=== PATIENT | female | born 1930 | race Caucasian/White ===

== ENCOUNTER 2019-08-25 17:58 | Emergency (ER) | payer OTHER ==
[~2019-08-25] VITALS: Ht 167.6 cm; Wt 65.8 kg
--- NOTE | 2019-08-25 17:58 | NUR ---
PTBIBA ALS TO ER BED 11
[2019-08-25 18:00] VITALS: BP 112/48
--- NOTE | 2019-08-25 18:18 | NUR ---
BIBA ONE EPISODE OF WITNESSED SYNCOPE AT [facility] S/P VAGAL MANUEVER. NO DEFORMITY NOTED. SKIN IN-TACT. PERRLA 3MM. PATIENT IS ORIENTED TO SELF, BUT CANNOT RECALL MONTH/PRESIDENT/ LOCATION. NO HEAD TRAUMA SUSPECTED. BILAT ABRASIVE GRINDER STRENGTH 5/5. ROM. LUNG SOUNDS CLEAR BILAT. RESPIRATIONS EVEN/UNLABORED. PMH: HTN, ANXIETY ALLERGIES: SULFA
[2019-08-25] MEDS ORDERED: NACL 0.9% 500 ML IV SCH (18:21)
--- NOTE | 2019-08-25 18:45 | NUR ---
PT TAKEN TO CT
[2019-08-25 18:53] LABS: BASOPHILS % (AUTO) 0.5 % (0.0-2.0); EOSINOPHILS # (AUTO) 0.1 K/uL (0-0.4); HEMATOCRIT 40.1 % (36-48); HEMOGLOBIN 13.1 g/dL (12.0-16.0); LYMPHOCYTES # (AUTO) 1.9 K/uL (2.5-16.5); LYMPHOCYTES % (AUTO) 25.1 % (20.5-51.1); MEAN CORPUSCULAR HEMOGLOBIN 30 pg (27-31); MEAN CORPUSCULAR HGB CONC 33 g/dL (33-37); MONOCYTES # (AUTO) 0.6 K/uL (0.8-1.0); MONOCYTES % (AUTO) 7.5 % (1.7-9.3); NEUTROPHILS # (AUTO) 4.9 K/uL (1.8-7.7); NEUTROPHILS % (AUTO) 65.9 % (42.2-75.2); PLATELET COUNT (AUTO) 253 K/uL (140-450); RED BLOOD CELL COUNT(AUTO) 4.31 MIL/uL (4.20-5.40); RED CELL DISTRIBUTION WIDTH 13.8 % (11.6-13.7); WHITE BLOOD COUNT (AUTO) 7.5 K/uL (4.8-10.8)
[2019-08-25 19:14] LABS: ANION GAP 10.3 (8-16); CARBON DIOXIDE 26.5 mmol/L (21-32); CHLORIDE 103 mmol/L (98-107); CREATININE 1.2 mg/dL (0.6-1.3); GLUCOSE 124 mg/dL (74-106); POTASSIUM 3.8 mmol/L (3.5-5.1); SODIUM SERUM 136 mmol/L (136-145); UREA NITROGEN, BLOOD 25 mg/dL (7-18)
[2019-08-25 19:20] LABS: ALBUMIN 3.5 g/dL (3.4-5.0); ASPARTATE AMINOTRANSFERASE 12 U/L (15-37); TOTAL BILIRUBIN 0.6 mg/dL (0.0-1.0)
[2019-08-25 19:26] LABS: PROTHROMBIN TIME 9.7 secs (10.8-13.4)
--- NOTE | 2019-08-25 19:39 | NUR ---
URINE COLLECTED AT THIS TIME
[2019-08-25 19:59] LABS: APPEARANCE,URINE CLEAR (CLEAR); BILIRUBIN,URINE NEGATIVE (NEGATIVE); BLOOD, URINE NEGATIVE (NEGATIVE); COLOR,URINE YELLOW (YELLOW); LEUKOCYTE ESTERASE ,URINE 1+ (NEGATIVE); NITRITE, URINE NEGATIVE (NEGATIVE); UGLUCOSE NEGATIVE (NEGATIVE)
[2019-08-25 20:16] LABS: RBC,URINE NONE SEEN /HPF (0-5)
[2019-08-25] MEDS ORDERED: cefTRIAXone 1,000 MG VIAL ONE (20:49)
[2019-08-25] MEDS ORDERED: LISI2.5T12 PO (21:01)
[2019-08-25] MEDS ORDERED: [UNRECOGNIZED DRUG - CODE] PO (21:01)
[2019-08-25] MEDS ORDERED: LORA-476 PO (21:01)
[2019-08-25] MEDS ORDERED: ROPI2TER3 PO (21:01)
[2019-08-25] MEDS ORDERED: PROP10TA28 PO (21:01)
[2019-08-25 22:57] VITALS: BP 111/79
--- NOTE | 2019-08-26 12:18 | NUR ---
Late entry. Confirmed with RN that 0.9 NS IV was completed at 1950
== END 2019-08-25 22:58 | disposition home or self-care (01) ==
LOC: MED 17:58
DX: R55 Syncope and collapse (principal); N39.0 Urinary tract infection, site not specified; I10 Essential (primary) hypertension; F41.9 Anxiety disorder, unspecified; Z79.899 Other long term (current) drug therapy
CPT/HCPCS: 36415; 70450; 71045; 80053; 81001; 83605; 83880; 84484; 85025; 85610; 85730; 87040; 87086; 93005; 96361; 96365; 99284; J0696; J7030